=== PATIENT | male | born 1990 | race Caucasian/White ===

== ENCOUNTER 2023-06-10 11:55 | Emergency (ER) | payer MEDICARE, MEDICAID, SELFPAY ==
--- NOTE | ~2023-06-10 | XR_ITS ---
EXAMINATION: XR CHEST CLINICAL INFORMATION: Chest pain. COMPARISON: None available. TECHNIQUE: Frontal view of the chest was obtained. FINDINGS: The lungs are clear. The cardiomediastinal silhouette is normal in size. There is no pleural effusion or pneumothorax. No acute osseous abnormality. XR/XR chest 1V IMPRESSION: No acute cardiopulmonary findings.
--- NOTE | 2023-06-10 11:56 | ECG_ITS ---
Test Reason : chest pain Blood Pressure : / mmHG Vent. Rate : 068 BPM Atrial Rate : 068 BPM P-R Int : 144 ms QRS Dur : 086 ms QT Int : 394 ms P-R-T Axes : 041 045 062 degrees QTc Int : 418 ms Normal sinus rhythm Normal ECG No previous ECGs available Referred By: Odalys Watkins Electronically Signed By:BRYNN GR
--- NOTE | 2023-06-10 11:56 | ED_ITS ---
HPI - General Adult General Chief complaint: Chest Pain Stated complaint: chest pain, headache Time Seen by Provider: 06/10/23 13:13 Source: patient Mode of arrival: ambulatory Limitations: no limitations History of Present Illness HPI narrative: 32 yo male with history of epilepsy since age 13, marijuana use who presents to the ER for evaluation of intermittent right sided, non-radiating chest pains for the last 2 days. Patient states the chest pain comes at random times, feels like a rock is in his chest on the right side. It is sharp and goes away on its own. He also reports intermittent shortness of breath and nausea. He states over the last 3 or 4 days he has had 7 or 8 episodes of mini seizures. he states they are most consistent with partial seizures with a lot of facial twitching and speech difficulties that are transient followed by irritability and mood changes. He has been compliant with his Trileptal. he follows with Dr. Ribera and has an appointment on July 01. he states he has been getting 6 or 7 hours of sleep. He has had increased stress, recently got . He reports using [id number] mg of caffeine per day in the form of energy drinks and 5 hour energy shots. MD complaint: Right-sided chest pain, shortness of breath, nausea, many seizures Onset (ago): day(s) Location: chest and abdomen Radiation: non-radiation Severity: moderate Quality: stabbing Pain Consistency: intermittent Relieving factors: none Exacerbating factors: none Associated symptoms: chest pain and shortness of breath Treatments prior to arrival: none Related Data Allergies Allergy/AdvReac Type Severity Reaction Status Date / Time No Known Allergies Allergy Unverified 06/10/23 12:01 Review of Systems Review of Systems: Yes all other systems are reviewed and are negative [facility] Social History Social History Advance Directives: No Advance Directives Information Provided: Yes Physical Exam ED Vital Signs: Vital Signs - 24 hr 06/10/23 12:02 Temperature 98 F Pulse Rate 77 Respiratory Rate 20 Blood Pressure 125/89 Pulse Oximetry 98 Oxygen Delivery Method Room Air BMI result Body Mass Index 19.7 Appearance: Alert. Oriented X3. No acute distress. Head: normocephalic, atraumatic. Eyes: Pupils equal, round and reactive to light. ENT: Pharynx normal. No tonsillar swelling or exudate. Neck: Normal inspection. Neck supple. CVS: Normal heart rate and rhythm. Pulses normal. Respiratory: No respiratory distress. Breath sounds normal. Abdomen: Soft and nontender. +BS x4 Skin: Skin warm and dry. Normal skin color. Normal skin turgor. No rashes. Extremities: No lower extremity edema. No joint swelling. Neuro/psych: Oriented X 3. No motor deficit. No sensory deficit. CN II-XII intact. Normal speech and cognition. Course Course Course Narrative: This is an RME: Additional HPI, ROS, PE not included below will be deferred to primary provider. Patient is a 32 year old male with a history of epilepsy, cva, presenting with intermittent chest pain and abdominal pain starting two days ago. He explains for the past four days he has been having mini seizures. He also admits to shortness of breath and nausea. Patient on epilepsy medication and states he takes them as prescribed but does not think they work anymore. Not on blood thinners. Admits to cigarette, marijuana and 1000mg daily of caffeine. Medical Decision Making Medical Decision Making MDM Narrative: 32-year-old male with history of epileptic seizures since the age of 13 presents to the ER for evaluation of intermittent chest pains on the right side along with shortness of breath, nausea, increased frequency of many seizures at home for the last few days. Patient has been compliant with antiepileptics. No full-blown tonic-clonic seizures. He admits to significant caffeine use up to 1200 mg per day. This has been chronic. He has had cardiac workups in the past that were unremarkable. On arrival to the ER his vital signs are stable. His physical exam is unremarkable. Neurologically intact. EKG without any ischemic changes. Trop onin is negative. Labs are unremarkable. Chest x-ray is normal. At this time patient was counseled on appropriate weaning and tapering of caffeine, as this could be the etiology of his complaints. He has a neurology f/u appointment in a couple of weeks and will discuss further treatment options at that time. No need for emergent neuro referral today. No evidence of ACS or lifethreatening causes of his chest pain. Stable for d/c home with close outpatient follow up, all questions were answered and return precautions were discussed. Differential Diagnosis Differential Diagnoses: The differential diagnosis associated with the pr esentation includes adverse SE caffeine, caffeine toxicity, Substance abuse, anxiety, atypical chest pain, pericarditis, myocarditis, ACS, PE Admission/Observation Consideration of admission/observation: Escalation of care including admission/observation considered Lab Data MDM Lab Attestation statement: I reviewed the patient's lab results. unremarkable 06/10/23 12:10 06/10/23 12:10 Labs: Lab Results 06/10/23 06/10/23 06/10/23 Range/Units 12:10 12:10 12:10 WBC 9.6 (4.8-10.8) X10*3/uL RBC 4.76 (4.60-5.80) X10*6/uL Hgb 14.6 (14.0-18.0) g/dl Hct 42.3 (42.0-52.0) % MCV 88.9 (80.0-98.0) fL MCH 30.7 (27.0-33.0) pg MCHC 34.5 (31.0-36.0) g/dl RDW 12.6 (11.0-16.0) % Plt Count 232 (160-400) X10*3/uL MPV 8.8 L (9.4-12.4) fL Immature Gran % (Auto) 0.3 (0.0-0.4) % Neut % (Auto) 68.5 (45-73) % Lymph % (Auto) 22.9 (20-40) % [place] % (Auto) 6.9 (2-11) % Eos % (Auto) 1.0 (0-4) % Baso % (Auto) 0.4 (0-2) % Lymph # (Auto) 2.2 (1.2-4.9) X10*3/uL [place] # (Auto) 0.7 (0.1-1.2) X10*3/uL Eos # (Auto) 0.1 (0.0-0.4) X10*3/uL Baso # (Auto) 0.0 (0.0-0.2) X10*3/uL Abs Immat Gran (auto) 0.03 (0.00-0.03) X10*3/uL Absolute Neuts (auto) 6.6 (2.0-8.3) x10*3/uL Absolute Nucleated RBC 0.000 (0.0-0.012) X10*3/uL Nucleated RBC % (auto) 0.0 (0.0-0.2) /100WBC Sodium 137 (135-145) mmol/L Potassium 4.2 (3.3-5.1) mmol/L Chloride 106 (96-108) mmol/L Carbon Dioxide 25 (22-29) mmol/L Anion Gap 10 L (12-20) BUN 9 (9-16) mg/dL Creatinine 0.75 (0.5-1.4) mg/dL Estim Creat Clear Calc 132.0 Estimated GFR > 60 Random Glucose 91 (60-115) mg/dL Calcium 8.9 (8.4-10.2) mg/dL Magnesium 2.0 (1.6-2.6) mg/dL Total Bilirubin 0.3 (0.0-1.0) mg/dL AST 34 (5-37) U/L ALT 30 (0-40) U/L Alkaline Phosphatase 57 (39-117) U/L Troponin I High Sens (<3.5-35.0) ng/L B-Natriuretic Peptide 54 (<100) pg/mL Total Protein 7.1 (6.5-8.0) g/dL Albumin 4.5 (3.5-5.0) g/dL Urine Color Urine Appearance Urine pH (5.0-9.0) Ur Specific [place] (1.005-1.025) Urine Protein (Neg-Trace) mg/dL Urine Glucose (UA) (Negative) mg/dL Urine Ketones (Negative) mg/dL Urine Blood (Negative) Urine Nitrite (Negative) Ur Leukocyte Esterase (Negative) 06/10/23 06/10/23 Range/Units 12:10 13:18 WBC (4.8-10.8) X10*3/uL RBC (4.60-5.80) X10*6/uL Hgb (14.0-18.0) g/dl Hct (42.0-52.0) % MCV (80.0-98.0) fL MCH (27.0-33.0) pg MCHC (31.0-36.0) g/dl RDW (11.0-16.0) % Plt Count (160-400) X10*3/uL MPV (9.4-12.4) fL Immature Gran % (Auto) (0.0-0.4) % Neut % (Auto) (45-73) % Lymph % (Auto) (20-40) % [place] % (Auto) (2-11) % Eos % (Auto) (0-4) % Baso % (Auto) (0-2) % Lymph # (Auto) (1.2-4.9) X10*3/uL [place] # (Auto) (0.1-1.2) X10*3/uL Eos # (Auto) (0.0-0.4) X10*3/uL Baso # (Auto) (0.0-0.2) X10*3/uL Abs Immat Gran (auto) (0.00-0.03) X10*3/uL Absolute Neuts (auto) (2.0-8.3) x10*3/uL Absolute Nucleated RBC (0.0-0.012) X10*3/uL Nucleated RBC % (auto) (0.0-0.2) /100WBC Sodium (135-145) mmol/L Potassium (3.3-5.1) mmol/L Chloride (96-108) mmol/L Carbon Dioxide (22-29) mmol/L Anion Gap (12-20) BUN (9-16) mg/dL Creatinine (0.5-1.4) mg/dL Estim Creat Clear Calc Estimated GFR Random Glucose (60-115) mg/dL Calcium (8.4-10.2) mg/dL Magnesium (1.6-2.6) mg/dL Total Bilirubin (0.0-1.0) mg/dL AST (5-37) U/L ALT (0-40) U/L Alkaline Phosphatase (39-117) U/L Troponin I High Sens < 2.7 (<3.5-35.0) ng/L B-Natriuretic Peptide (<100) pg/mL Total Protein (6.5-8.0) g/dL Albumin (3.5-5.0) g/dL Urine Color Yellow Urine Appearance Clear Urine pH 7.0 (5.0-9.0) Ur Specific [place] 1.010 (1.005-1.025) Urine Protein Negative (Neg-Trace) mg/dL Urine Glucose (UA) Negative (Negative) mg/dL Urine Ketones Negative (Negative) mg/dL Urine Blood Negative (Negative) Urine Nitrite Negative (Negative) Ur Leukocyte Esterase Negative (Negative) Independent Interpretation I performed an independent interpretation of an: EKG and Plain X-Ray Interpretation: EKG with normal sinus rhythm, HR 68 bpm, normal AR interval and QTc CXR with clear lungs, no infiltrate, no PTX, agree w/ radiology read Radiology Impression Discussion of test interpretation with radiology: I have reviewed the radiologist's reading. Radiologist Impression: EXAMINATION: XR CHEST CLINICAL INFORMATION: Chest pain. COMPARISON: None available. TECHNIQUE: Frontal view of the chest was obtained. FINDINGS: The lungs are clear. The cardiomediastinal silhouette is normal in size. There is no pleural effusion or pneumothorax. No acute osseous abnormality. XR/XR chest 1V IMPRESSION: No acute cardiopulmonary findings. Prescription Management I considered prescription management with: Other (anxiolytic) Chronic Conditions Patient?s care impacted by: Other (epilepsy) Critical Care Time Critical Care Time Critical Care Time: No Discharge Plan Discharge Clinical Impression: Atypical chest pain, Adverse effect of caffeine Patient Disposition: Home, Self-Care Instructions: Noncardiac Chest Pain (ED), Caffeine Use (ED) Additional Instructions: Your workup today was unremarkable, including normal lab workup, normal chest x- ray, normal EKG. Recommend slowly titrating down your caffeine intake, over the course of days and weeks. Follow-up with your neurologist as scheduled. If you develop new or worsening symptoms call 911 or come back to the ER for further evaluation. Referrals: [facility] [place] [facility] Family Medicine [Provider Group] [facility] Primary [facility] [Provider Group] [facility] Primary Care[facility] [Provider Group] [facility] Neuro/Sleep [Provider Group] Stand Alone Forms: Work/School Release
[2023-06-10 12:02] VITALS: BP 125/89; PULSE 77; RESP 20; TEMP 36.6; O2SAT 98; BMI 19.7
[2023-06-10 12:22] LABS: MANUAL DIFF FLAG NO
[2023-06-10 12:30] LABS: Basophils Percent Auto 0.4 % (0-2); Eosinophils Absolute Auto 0.1 X10*3/uL (0.0-0.4); Hematocrit 42.3 % (42.0-52.0); Hemoglobin 14.6 g/dl (14.0-18.0); Imm Gran Abs Auto 0.03 X10*3/uL (0.00-0.03); Imm Gran Pct Auto 0.3 % (0.0-0.4); Lymphocytes Absolute Auto 2.2 X10*3/uL (1.2-4.9); Lymphocytes Percent Auto 22.9 % (20-40); Mean Corpuscular HGB Conc 34.5 g/dl (31.0-36.0); Mean Corpuscular Hemoglobin 30.7 pg (27.0-33.0); Mean Corpuscular Volume 88.9 fL (80.0-98.0); Mean Platelet Volume 8.8 fL (9.4-12.4); Monocytes Absolute Auto 0.7 X10*3/uL (0.1-1.2); Monocytes Percent Auto 6.9 % (2-11); Neutrophils Absolute Auto 6.6 x10*3/uL (2.0-8.3); Neutrophils Percent Auto 68.5 % (45-73); Platelet Count 232 X10*3/uL (160-400); Red Blood Count 4.76 X10*6/uL (4.60-5.80); Red Cell Distribution Width 12.6 % (11.0-16.0); White Blood Count 9.6 X10*3/uL (4.8-10.8)
[2023-06-10 12:50] LABS: Alanine Aminotransferase 30 U/L (0-40); Albumin Level 4.5 g/dL (3.5-5.0); Alkaline Phosphatase 57 U/L (39-117); Anion Gap 10 (12-20); Aspartate Amino Transferase 34 U/L (5-37); Bilirubin Total 0.3 mg/dL (0.0-1.0); Blood Urea Nitrogen 9 mg/dL (9-16); Calcium 8.9 mg/dL (8.4-10.2); Carbon Dioxide 25 mmol/L (22-29); Chloride 106 mmol/L (96-108); Estimated Glomerular Filt Rate > 60; Glucose Random 91 mg/dL (60-115); Potassium 4.2 mmol/L (3.3-5.1); Sodium 137 mmol/L (135-145); Total Protein 7.1 g/dL (6.5-8.0)
[2023-06-10 12:56] LABS: B Type Natriuretic Peptide 54 pg/mL (<100)
[2023-06-10 13:00] LABS: Troponin-I High Sensitivity < 2.7 ng/L (<3.5-35.0)
--- NOTE | 2023-06-10 13:22 | MHC.EDTECH ---
Urine collected and sent to lab
[2023-06-10 13:24] LABS: Appearance Urine Clear; Color Urine Yellow; Glucose Urine UA Negative (Negative); Leukocyte Esterase Urine Negative (Negative); Nitrite Urine Negative (Negative); Urine Blood Negative (Negative); Urine Ketones Negative (Negative); Urine Protein Negative (Neg-Trace)
== END 2023-06-10 14:00 | disposition home or self-care (01) ==
PROVIDERS: Physician Assistant; Emergency Provider Emergency Medicine
DX: R07.89 Other chest pain (principal); T43.615A Adverse effect of caffeine, initial encounter; R06.02 Shortness of breath; Y92.9 Unspecified place or not applicable; Z79.899 Other long term (current) drug therapy
CPT/HCPCS: 36415; 71045; 80053; 81003; 83735; 83880; 84484; 85025; 93005; 99283

== ENCOUNTER 2023-06-12 13:47 | Outpatient (REF) | payer MEDICARE, MEDICAID, SELFPAY ==
[2023-06-15 17:09] LABS: Oxcarbazepine 31.9 mcg/mL (8.0-35.0)
== END 2023-06-12 13:48 | disposition home or self-care (01) ==
LOC: HO.LAB 13:47
PROVIDERS: Visit Provider Psychiatry & Neurology Neurology
DX: G40.909 Epilepsy, unspecified, not intractable, without status epilepticus (principal); Z79.899 Other long term (current) drug therapy
CPT/HCPCS: 36415; 80339

== ENCOUNTER 2023-07-18 12:44 | Outpatient (REF) | payer MEDICARE, MEDICAID, SELFPAY ==
--- NOTE | 2023-07-18 12:47 | EEG_ITS ---
FINDINGS: Awaking background activity consists of a moderate voltage 8 to 9 hertz posterior alpha frequency intermixed anteriorly with low-voltage fast frequencies. Drowsiness is characterized by diffuse theta slowing. During sleep, symmetrical frontocentral sleep spindles developed over both hemispheres. Overall results are unremarkable. No focal, lateralizing or paroxysmal discharges are seen. IMPRESSION: This 24-hour ambulatory EEG is within normal limits with no seizure discharges. MD FABBY Leal/SABA / [phone]
== END 2023-07-18 12:45 | disposition home or self-care (01) ==
LOC: HO.NEURO 12:44
PROVIDERS: PCP Nurse Practitioner Family; Visit Provider Psychiatry & Neurology Neurology
DX: R56.9 Unspecified convulsions (principal)
CPT/HCPCS: 95708

== ENCOUNTER 2023-08-26 13:04 | Outpatient (AMB) | payer MEDICARE, MEDICAID, SELFPAY ==
[2023-08-26 13:06] VITALS: BP 130/72; PULSE 71; O2SAT 99; BMI 20.5
--- NOTE | 2023-08-26 13:06 | A.OFFPC_ITS ---
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. Past medical history significant for seizures, anxiety and stroke at age 2. Patient has residual left arm/leg partial paralysis with limited ROM and and walks with limp. Does not use any assistive devices at this time. Patient currently following with Dr. Mounika holland. Patient states was having 11 partial seizures a few months ago related to stress he was under. Denies recurrent seziures since starting on oxcarbazepine. Patient hx anxiety PHQ-9 score 0, does not currently follow with counseling or psychiatry, patient requesting psych referral. Referral entered. [facility] Medical History (Updated 08/27/23 @ 08:53 by RUBENS Rizvi) Paralysis of left upper extremity History of stroke Family History (Updated 08/26/23 @ 13:22 by RUBENS Rizvi) Mother Lymphoma Father Drug overdose Social History (Updated 08/26/23 @ 13:23 by RUBENS Rizvi) Housing: House Alcohol intake: never Patient Tobacco Use Status: Current everyday Tobacco user Cigarette Packs Per Day: 1 Substance Use Type: Marijuana Substance Use Frequency: Daily service: No Current occupational status: employed Current occupation: Cognitive needs: No Hearing needs: No Vision needs: No Questionnaire PHQ-9 Over the last 2 weeks, how often have you been bothered by any of the following problems? 1. Little interest or pleasure in doing things: not at all 2. Feeling down, depressed, or hopeless: not at all 3. Trouble falling or staying asleep, or sleeping too much: not at all 4. Feeling tired or having little energy: not at all 5. Poor appetite or overeating: not at all 6. Feeling bad about yourself - or that you are a failure or have let yourself or your family down: not at all 7. Trouble concentrating on things, such as reading the newspaper or watching television: not at all 8. Moving or speaking so slowly that other people could have noticed. Or the opposite - being so fidgety or restless that you have been moving around a lot more than usual: not at all 9. Thoughts that you would be better off or of hurting yourself in some way: not at all Total score: 0 Depression Screening Interpretation: Negative Depression Screening Done: Yes 31644 - PHQ-9 Billing: Yes Source: Developed by Drs. Shar Goldstein, Neelima Jansen, Vadim Cai and colleagues, with an educational patrick from [email or web address]. Thrive Questionnaire Date Thrive assessed: 08/26/23 I am a: Patient What is your living situation today?: I have a steady place to live Within the past 12 months, did the food you bought not last and you didn't have the money to get more?: Never true Within the past 12 months, did you worry whether your food would run out before you got money to buy more?: Never true Do you have trouble paying for medicines?: No Do you have trouble getting transportation to medical appointments?: No Do you have trouble paying your heating and electricity bill?: No Do you have trouble taking care of your child, family member or friend?: No Do you have trouble with day-to-day activities such as bathing, preparing meals, shopping, managing finances, etc.?: No Are you currently unemployed and looking for a job?: No Are you interested in more education?: No Currently or been in a relationship where the following occur: no concerns reported AUDIT C Alcohol Use Questionnaire (AUDIT-C) 1. How often do you have a drink containing alcohol?: Never 3. How often do you have six or more drinks on one occasion?: Never Total Score: 0 LEONARD-7 AMB Questionnaire LEONARD-7 Date LEONARD - 7 assessed: 08/26/23 Feeling nervous, anxious, or on edge: 0 = Not at all Not being able to stop or control worryin = Not at all Worrying too much about different things: 0 = Not at all Trouble relaxin = Not at all Being so restless that it is hard to sit still: 0 = Not at all Becoming easily annoyed or irritable: 0 = Not at all Feeling afraid as if something awful might happen: 0 = Not at all Total LEONARD-7 score (0-4 normal; 5-9 mild; 10-14 moderate; 15-21 severe): 0 Source: Developed by Drs. Shar Goldstein, Neelima Jansen, Vadim Cai and colleagues, with an educational patrick from [email or web address]. LEONARD-7 Assessment Billing LEONARD-7 Assessment Tool: LEONARD-7 Assessment 66660 Review of Systems Const Denies chills, Denies fatigue, Denies fever(s) and Denies poor appetite Eyes Denies no additional complaints ENT Reports Normal hearing present Card Denies chest pain, Denies syncope, Denies rapid heart rate and Denies dyspnea Resp Denies cough and Denies dyspnea GI Denies change in stool character, Denies constipation, Denies diarrhea, Denies nausea and Denies vomiting Denies dysuria, Denies urinary frequency and Denies urinary urgency Neuro Reports Normal hearing present, Denies confusion and Denies syncope Psych Denies confusion Endo Denies fatigue Physical exam (Primary Care) Vital Signs: Last Vital Signs Pulse 71 08/26/23 13:06 BP 130/72 08/26/23 13:06 Pulse Ox 99 08/26/23 13:06 Oxygen Delivery Method Room Air 08/26/23 13:06 BMI result Body Mass Index 20.5 Tobacco/Smoking Status: Tobacco use Status Tobacco use date assessed 08/26/23 08/26/23 13:07 Patient Tobacco Use Status Current everyday Tobacco 08/26/23 13:23 PHQ-9: PHQ-9 Score PHQ-9: Total score 0 08/26/23 13:24 Depression Screening Interpretation: Negative Thrive Assessment: Date of Thrive Assessment Date Thrive assessed 08/26/23 08/26/23 13:09 Currently or been in a relationship where the following occur: no concerns reported Const General: No confusion Orientation/consciousness: No confusion HENMT Head: Yes normocephalic and Yes atraumatic Eyes Conjunctivae: conjunctivae normal Chest Chest palpation & inspection: normal inspection of the chest Resp Effort & Inspection: normal respiratory effort Auscultation: clear to auscultation bilaterally, no crackles, no rhonchi and no wheezes Cardio Rate: regular rate Rhythm: regular rhythm Heart sounds: S1 normal heart sound present and S2 normal heart sound present GI Inspection: Yes normal to inspection Neuro General: No confusion Cranial nerves: Yes Normal hearing present Extrem General: No edema Assessment and Plan Assessment & Plan (1) Seizure: Code(s): R56.9 - Unspecified convulsions Plan: Continue on oxcarbazepine. Continue to follow with Neurology. (2) Anxiety: Code(s): F41.9 - Anxiety disorder, unspecified Plan: Referral entered psych. (3) Encounter for medical examination to establish care: Code(s): Z00.00 - Encounter for general adult medical examination without abnormal findings Orders: Orders TSH reflex Free T4 08/26/23 Z13.29 - Encounter for screening for other suspected endocrine disorder Lipid Panel 08/26/23 Z13.220 - Encounter for screening for lipoid disorders Comprehensive [place]. Panel Fast 08/26/23 Z13.1 - Encounter for screening for diabetes mellitus Complete Blood Count no Diff 08/26/23 Z13.0 - Encounter for screening for diseases of the blood and blood-forming organs and certain disorders involving the immune mechanism Referrals Psychiatry Referral F41.9 - Anxiety disorder, unspecified Coding Level of Care Code New Pt Level 3 (40167) Diagnoses Seizure R56.9 Anxiety F41.9 Encounter for medical examination to establish care Z00.00 Additional Codes LEONARD-7 Assessment Billing - LEONARD-7 Assessment Tool: LEONARD-7 Assessment 34095 ([id number])
== END 2023-08-26 13:29 | disposition home or self-care (01) ==
PROVIDERS: PCP Nurse Practitioner Family; Visit Provider Nurse Practitioner Family
DX: R56.9 Unspecified convulsions (principal); F41.9 Anxiety disorder, unspecified
CPT/HCPCS: 99203

== ENCOUNTER 2023-12-02 07:51 | Outpatient (AMB) | payer MEDICARE, MEDICAID, SELFPAY ==
--- NOTE | 2023-12-02 08:03 | MHC.PC.OV ---
Vital Signs 12/02/23 08:05 Height 6 ft Weight 147 lb BMI 19.9 BP 132/70 Blood Pressure Location Lt brachial Position Sitting Pulse 68 Pulse Source Pulse Oximeter Pulse Oximetry (%) 97 Oxygen Delivery Method Room Air Intake Visit Reasons: Annual Exam Intake Note: Patient is here for his physical. 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 Here today for physical exam Prostatis Dx w/ 11/13/23 UC in [place]. Was on AB x 1 week. Admits sx are better but done. Denies fever, chills. + abd pain. Urine looks abnormal, particles . No hematuria. Positive penile discharge Partial Sz affects speech; occurs a few times per day. Active with [facility] for routine care and follow-up LEONARD relates the uptick to his health at the time of the visit, this is better. Here today w/ Alfreda BRITO Medical History Paralysis of left upper extremity History of stroke Family History Mother Lymphoma Father Drug overdose Social History (Updated 12/02/23 @ 09:51 by Kirsten Ramsey CMA) Household Members: Other Caregiver staying overnight: No Housing: House Are you a primary zoo caretaker to a significant other at home: No Do you presently have visiting nurse or other home services: No 75 years or older and lives alone: No Alcohol intake: never Patient Tobacco Use Status: Current everyday Tobacco user Cigarette Packs Per Day: 1 e-Cigarette/Vaping Use: Currently Using Use of substances other than those prescribed or required for medical reasons: Yes Substance Use Type: Marijuana Have you been hit, kicked, punched, or otherwise hurt by someone within the past year? If so, by whom?: No Do you feel safe in your current relationship?: Yes Is there a partner from a previous relationship who is making you feel unsafe now?: No Are you made to feel afraid or neglected: No service: No Current occupational status: employed Current occupation: Sexual orientation: Unable to collect Gender identity: Unable to collect Cognitive needs: No Hearing needs: No Vision needs: No Questionnaire PHQ-9 Over the last 2 weeks, how often have you been bothered by any of the following problems? 1. Little interest or pleasure in doing things: not at all 2. Feeling down, depressed, or hopeless: not at all 3. Trouble falling or staying asleep, or sleeping too much: not at all 4. Feeling tired or having little energy: not at all 5. Poor appetite or overeating: not at all 6. Feeling bad about yourself - or that you are a failure or have let yourself or your family down: not at all 7. Trouble concentrating on things, such as reading the newspaper or watching television: not at all 8. Moving or speaking so slowly that other people could have noticed. Or the opposite - being so fidgety or restless that you have been moving around a lot more than usual: not at all 9. Thoughts that you would be better off or of hurting yourself in some way: not at all Total score: 0 Depression Screening Interpretation: Negative Depression Screening Done: Yes 86444 - PHQ-9 Billing: Yes Source: Developed by Drs. Shar Goldstein, Neelima Jansen, Vadim Cai and colleagues, with an educational patrick from [email or web address]. Thrive Questionnaire Date Thrive assessed: 12/02/23 I am a: Patient What is your living situation today?: I have a steady place to live Within the past 12 months, did the food you bought not last and you didn't have the money to get more?: Never true Within the past 12 months, did you worry whether your food would run out before you got money to buy more?: Never true Do you have trouble paying for medicines?: No Do you have trouble getting transportation to medical appointments?: No Do you have trouble paying your heating and electricity bill?: No Do you have trouble taking care of your child, family member or friend?: No Do you have trouble with day-to-day activities such as bathing, preparing meals, shopping, managing finances, etc.?: No Are you currently unemployed and looking for a job?: No Are you interested in more education?: No Please select the resources that you would like help with: None Currently or been in a relationship where the following occur: no concerns reported THRIVE Score: 0 AUDIT C Alcohol Use Questionnaire (AUDIT-C) 1. How often do you have a drink containing alcohol?: Never 3. How often do you have six or more drinks on one occasion?: Never Total Score: 0 Score Reviewed/Action Taken: Yes LEONARD-7 AMB Questionnaire LEONARD-7 Date LEONARD - 7 assessed: 12/02/23 Feeling nervous, anxious, or on edge: 0 = Not at all Not being able to stop or control worryin = Not at all Worrying too much about different things: 0 = Not at all Trouble relaxin = Not at all Being so restless that it is hard to sit still: 0 = Not at all Becoming easily annoyed or irritable: 0 = Not at all Feeling afraid as if something awful might happen: 0 = Not at all Total LEONARD-7 score (0-4 normal; 5-9 mild; 10-14 moderate; 15-21 severe): 0 Source: Developed by Drs. Shar Goldstein, Neelima Jansen, Vadim Cai and colleagues, with an educational patrick from [email or web address]. LEONARD-7 Assessment Billing LEONARD-7 Assessment Tool: LEONARD-7 Assessment 42435 Review of Systems Const Details: Constitutional: Denies fever. Skin: Denies rash. Eye: Denies eye pain. ENMT: Denies sore throat and nasal congestion. Respiratory: Denies shortness of breath and cough. Gastrointestinal: Denies nausea, vomiting. Cardiovascular: Denies chest pain and syncope. Genitourinary: Denies dysuria. Musculoskeletal: Denies back pain and extremity pain. Neurologic: Denies headaches, confusion, and weakness. Psychiatric: Denies suicidal thoughts and substance abuse. Allergy/ Immunologic: Denies impaired immunity. Physical exam (Primary Care) Vital Signs: Last Vital Signs Pulse 68 12/02/23 08:05 BP 132/70 12/02/23 08:05 Pulse Ox 97 12/02/23 08:05 Oxygen Delivery Method Room Air 12/02/23 08:05 BMI result Body Mass Index 19.9 Tobacco/Smoking Status: Tobacco use Status Tobacco use date assessed 08/26/23 12/02/23 08:03 Patient Tobacco Use Status Current everyday Tobacco 12/02/23 08:03 e-Cigarette/Vaping Use Currently Using 12/02/23 08:23 Are you ready to quit: No Tobacco cessation counseling provided: Yes Items discussed: QuitWorks Number of minutes spent counselin CPT code: Less than 3 minutes PHQ-9: PHQ-9 Score PHQ-9: Total score 0 12/02/23 08:23 Depression Screening Interpretation: Negative Thrive Assessment: Date of Thrive Assessment Date Thrive assessed 12/02/23 12/02/23 08:23 Currently or been in a relationship where the following occur: no concerns reported Const Other: General: Well developed, well nourished, in no acute distress. Appears older than stated age. Head: Normocephalic, atraumatic. Eyes: Pupils are equal, round and reactive to light and accommodation. Conjunctivae are clear. Vision grossly normal. Ears: TMs clear AU, EACS WNL Nose: Patent, without discharge. Mouth: There are no ulcers or lesions noted. No inflammation, no post nasal drip, no plaques nor exudates. Neck: Supple, no adenopathy or thyromegaly. Lungs: Clear to auscultation bilaterally. No rales, rhonchi or wheeze noted. Good air flow in all marie. Heart: Regular rate and rhythm. No murmurs, click, rubs or gallops are noted. Abdomen: Bowel sounds present in all quadrants. The abdomen is soft, nontender, with no masses or organomegaly noted. No hernias are noted. Musculoskeletal: Joints are nontender, without swelling, redness, or effusions. Pulses: Peripheral pulses are equal and palpable bilaterally. Extremities: No clubbing, cyanosis nor edema is noted. Hemiparesis affecting left upper and lower extremity, muscle atrophy of left arm, ambulates with a limp favoring the left lower extremity Neurologic: Cranial Nerves 2-12 intact. Skin: No rashes, ulcers, or lesions noted. Turgor is good. Skin color is good. Hair and nails are without abnormalities. Psych: Anxious appearing, guarded, looks at before answering any questions and defers to her for any details. Normal eye contact, affect and mood appropriate, and normal interactions. Patient is alert and appropriate to context. Extremities: No clubbing, cyanosis or edema. 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 Managed carbamazepine reports several partial seizures daily Code(s): I69.398 - Other sequelae of cerebral infarction; G40.909 - Epilepsy, unspecified, not intractable, without status epilepticus (3) Hemiparesis affecting left side as late effect of cerebrovascular accident: Comment: CVA at age of 2 with residual hemiparesis affecting the left upper and lower extremity Code(s): I69.354 - Hemiplegia and hemiparesis following cerebral infarction affecting left non-dominant side (4) LEONARD (generalized anxiety disorder): Comment: Current and active. Not on any medications. Declines medication as well as any referral for counseling or management Code(s): F41.1 - Generalized anxiety disorder (5) Prostatitis: Code(s): N41.9 - Inflammatory disease of prostate, unspecified Qualifiers: Prostatitis type: acute Qualified Code(s): N41.0 - Acute prostatitis Plan: Reports this was diagnosed at urgent care on 11/13/2023 and treated with 1 week of antibiotics. His symptoms have improved however continue. I do not have any records. He and his can not give me any further details of this visit. The plan will be to check a urine today along with a PSA and an STD screen. I would like to follow up with him on the results of this testing in 2 weeks sooner if positive results for STD. If the testing is normal and he continues to have these symptoms I do recommend a referral to Urology. (6) Laboratory exam ordered as part of routine general medical examination: Code(s): Z00.00 - Encounter for general adult medical examination without abnormal findings (7) Tobacco dependence with current use: Comment: It?s never too late to quit smoking. Quitting smoking now improves your health and reduces your risk of heart disease, cancer, lung disease, and other smoking-related illnesses. Start Your Quitting Journey Resources for Quitting Telephone 7-922-OYQW-NOW ( ) 68-D?OLIVIAKeelySIOMARA ( ) (Espa?ol) (??) (???) (Ti?ng Vi?t) Text Messaging Services (Message and data rates may apply) Text QUITNOW to [phone] Texto D?OLIVIA STRINGER al [id number] (Espa?ol) Smartphone Tito quitSTARTapp Code(s): F17.200 - Nicotine dependence, unspecified, uncomplicated Orders: Orders Vitamin D 1,25 dihydroxy Today F41.1 - Generalized anxiety disorder, G40.909 - Epilepsy, unspecified, not intractable, without status epilepticus, I69.354 - Hemiplegia and hemiparesis following cerebral infarction affecting left non-dominant side, I69.398 - Other sequelae of cerebral infarction, N41.9 - Inflammatory disease of prostate, unspecified Lipid Panel Today F41.1 - Generalized anxiety disorder, G40.909 - Epilepsy, unspecified, not intractable, without status epilepticus, I69.354 - Hemiplegia and hemiparesis following cerebral infarction affecting left non-dominant side, I69.398 - Other sequelae of cerebral infarction, N41.9 - Inflammatory disease of prostate, unspecified PSA, Ultra Sensitive Today F41.1 - Generalized anxiety disorder, G40.909 - Epilepsy, unspecified, not intractable, without status epilepticus, I69.354 - Hemiplegia and hemiparesis following cerebral infarction affecting left non-dominant side, I69.398 - Other sequelae of cerebral infarction, N41.9 - Inflammatory disease of prostate, unspecified PSA,Total (Free>4and<10) Today F41.1 - Generalized anxiety disorder, G40.909 - Epilepsy, unspecified, not intractable, without status epilepticus, I69.354 - Hemiplegia and hemiparesis following cerebral infarction affecting left non-dominant side, I69.398 - Other sequelae of cerebral infarction, N41.9 - Inflammatory disease of prostate, unspecified HIV Ab/Ag Today F41.1 - Generalized anxiety disorder, G40.909 - Epilepsy, unspecified, not intractable, without status epilepticus, I69.354 - Hemiplegia and hemiparesis following cerebral infarction affecting left non-dominant side, I69.398 - Other sequelae of cerebral infarction, N41.9 - Inflammatory disease of prostate, unspecified CT NG by PCR Today F41.1 - Generalized anxiety disorder, G40.909 - Epilepsy, unspecified, not intractable, without status epilepticus, I69.354 - Hemiplegia and hemiparesis following cerebral infarction affecting left non-dominant side, I69.398 - Other sequelae of cerebral infarction, N41.9 - Inflammatory disease of prostate, unspecified Syphilis Screen Today F41.1 - Generalized anxiety disorder, G40.909 - Epilepsy, unspecified, not intractable, without status epilepticus, I69.354 - Hemiplegia and hemiparesis following cerebral infarction affecting left non-dominant side, I69.398 - Other sequelae of cerebral infarction, N41.9 - Inflammatory disease of prostate, unspecified Comprehensive [place]. Panel Fast Today F41.1 - Generalized anxiety disorder, G40.909 - Epilepsy, unspecified, not intractable, without status epilepticus, I69.354 - Hemiplegia and hemiparesis following cerebral infarction affecting left non-dominant side, I69.398 - Other sequelae of cerebral infarction, N41.9 - Inflammatory disease of prostate, unspecified Microalbumin, Random (w Creat) Today F41.1 - Generalized anxiety disorder, G40.909 - Epilepsy, unspecified, not intractable, without status epilepticus, I69.354 - Hemiplegia and hemiparesis following cerebral infarction affecting left non-dominant side, I69.398 - Other sequelae of cerebral infarction, N41.9 - Inflammatory disease of prostate, unspecified TSH reflex Free T4 Today F41.1 - Generalized anxiety disorder, G40.909 - Epilepsy, unspecified, not intractable, without status epilepticus, I69.354 - Hemiplegia and hemiparesis following cerebral infarction affecting left non-dominant side, I69.398 - Other sequelae of cerebral infarction, N41.9 - Inflammatory disease of prostate, unspecified UA CC w/rflx Micro + Cult Today F41.1 - Generalized anxiety disorder, G40.909 - Epilepsy, unspecified, not intractable, without status epilepticus, I69.354 - Hemiplegia and hemiparesis following cerebral infarction affecting left non-dominant side, I69.398 - Other sequelae of cerebral infarction, N41.9 - Inflammatory disease of prostate, unspecified Coding Level of Care Code Est Pt Prev Care 18-39y(30639) Diagnoses Physical exam, annual Z00.00 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
[2023-12-02 08:05] VITALS: BP 132/70; PULSE 68; O2SAT 97; BMI 19.9
== END 2023-12-02 08:51 | disposition home or self-care (01) ==
PROVIDERS: PCP Nurse Practitioner Family; Visit Provider Nurse Practitioner Family
DX: Z00.00 Encounter for general adult medical examination without abnormal findings (principal); G40.909 Epilepsy, unspecified, not intractable, without status epilepticus; I69.354 Hemiplegia and hemiparesis following cerebral infarction affecting left non-dominant side; I69.398 Other sequelae of cerebral infarction; F41.1 Generalized anxiety disorder; N41.0 Acute prostatitis; F17.210 Nicotine dependence, cigarettes, uncomplicated
CPT/HCPCS: 99395

== ENCOUNTER 2023-12-02 08:33 | Outpatient (REF) | payer MEDICARE, MEDICAID, SELFPAY ==
[2023-12-02 11:07] LABS: Appearance Urine Clear; Color Urine Yellow; Glucose Urine UA Negative (Negative); Leukocyte Esterase Urine Negative (Negative); Nitrite Urine Negative (Negative); PH 6.5 (5.0-9.0); Specific Gravity - Urine 1.025 (1.005-1.025); Urine Blood Negative (Negative); Urine Ketones Negative (Negative); Urine Protein Negative (Neg-Trace)
[2023-12-02 11:52] LABS: Microalbum/Creatinine Ratio Ur 11.2 ug/mg cr (<30)
[2023-12-02 11:55] LABS: Alanine Aminotransferase 28 U/L (0-40); Albumin Level 4.5 g/dL (3.5-5.0); Alkaline Phosphatase 59 U/L (39-117); Anion Gap 11 (12-20); Aspartate Amino Transferase 30 U/L (5-37); Bilirubin Total 0.2 mg/dL (0.0-1.0); Blood Urea Nitrogen 14 mg/dL (9-16); Carbon Dioxide 25 mmol/L (22-29); Chloride 106 mmol/L (96-108); Cholesterol 189 mg/dL (<200); Estimated Glomerular Filt Rate > 60; Glucose Fasting 94 mg/dL (60-99); HDL Cholesterol 45 mg/dL (>40); LDL Cholesterol Calculated 133 mg/dL (<100); Sodium 138 mmol/L (135-145); Triglycerides 58 mg/dL (<150)
[2023-12-03 03:01] LABS: Syphilis Screen Nonreactive (Nonreactive)
[2023-12-03 03:17] LABS: HIV AB/AG Nonreactive (Nonreactive); HIV Num 1 0.06 S/CO (0.00-0.99)
[2023-12-05 12:34] LABS: VITAMIN D (1,25 OH) D3 39 pg/mL; Vit D (1,25-Dihydroxy) Total 39 pg/mL (18-72); Vitamin D (1,25 OH) D2 <8 pg/mL
[2023-12-05 17:39] LABS: PSA, Ultra Sensitive 0.83 ng/mL
== END 2023-12-02 08:34 | disposition home or self-care (01) ==
LOC: HO.WFDLDS 08:33
PROVIDERS: Visit Provider Nurse Practitioner Family
DX: I69.354 Hemiplegia and hemiparesis following cerebral infarction affecting left non-dominant side (principal); I69.398 Other sequelae of cerebral infarction; G40.909 Epilepsy, unspecified, not intractable, without status epilepticus; N41.9 Inflammatory disease of prostate, unspecified; F41.1 Generalized anxiety disorder; Z12.5 Encounter for screening for malignant neoplasm of prostate
CPT/HCPCS: 36415; 80053; 80061; 81003; 82043; 82570; 82652; 84153; 84443; 86780; 87389

== ENCOUNTER 2023-12-17 15:55 | Outpatient (AMB) | payer MEDICARE, MEDICAID, SELFPAY ==
--- NOTE | 2023-12-17 15:53 | A.OFFPC_ITS ---
Intake Visit Reasons: lab review/prostatis Intake Note: Patient is ready for his telehealth visit. Screening Nurse Required: No Accompanied by: Self / Same As Patient Allergies No Known Allergies Allergy (Verified 12/17/23 15:54) Tobacco use date assessed: 08/26/23 HPI HPI Comments History of Present Illness0 Details Given the COVID-19 pandemic, the patient was offered and has consented to a telemedicine visit with Gissell Bryan NP 12/17/23 at 1600 in lieu of a tra ditional in-office visit. Patient understands the risks, alternatives and benefits of a telemedicine visit. The patient has been informed of the limitations of a telemedicine visit, including the quality of self-reported information (e.g. vital signs and symptoms) as well as the inability to perform a hands-on physical exam by a healthcare provider. Patient understands that a traditional in-office visit may be required based on the findings of today's telemedicine visit. Patient also understands that their insurance will be billed for services rendered and that a copayment may be required. 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 No longer having any urinary symptoms. Reports that he has been drinking more fluid and feels like this has helped. I did place a referral to Urology. I asked him if he would like me to cancel this given that he is feeling better. He wishes to defer and speak with his before doing anything. He will call or send a portal message about this after he talks with his . I also followed up about his anxiety. Reports that he generally feels wound up and that life circumstances in his health do cause some anxiety however he feels like he is managing okay and does not wish for any medications or counseling referral at this time. He does state that he will reach out if anything changes. [facility] Medical History Paralysis of left upper extremity History of stroke Family History Mother Lymphoma Father Drug overdose Social History (Updated 12/02/23 @ 09:51 by Kirsten Ramsey CMA) Household Members: Other Caregiver staying overnight: No Housing: House Are you a primary home visit field care manager to a significant other at home: No Do you presently have visiting nurse or other home services: No 75 years or older and lives alone: No Alcohol intake: never Patient Tobacco Use Status: Current everyday Tobacco user Cigarette Packs Per Day: 1 e-Cigarette/Vaping Use: Currently Using Use of substances other than those prescribed or required for medical reasons: Yes Substance Use Type: Marijuana Have you been hit, kicked, punched, or otherwise hurt by someone within the past year? If so, by whom?: No Do you feel safe in your current relationship?: Yes Is there a partner from a previous relationship who is making you feel unsafe now?: No Are you made to feel afraid or neglected: No service: No Current occupational status: employed Current occupation: Sexual orientation: Unable to collect Gender identity: Unable to collect Cognitive needs: No Hearing needs: No Vision needs: No Questionnaire Thrive Questionnaire Date Thrive assessed: 12/02/23 LEONARD-7 AMB Questionnaire LEONARD-7 Date LEONARD - 7 assessed: 12/02/23 Source: Developed by Drs. Shar Goldstein, Neelima Jansen, Vadim Cai and colleagues, with an educational patrick from [employer]. Physical exam (Primary Care) Tobacco/Smoking Status: Tobacco use Status Tobacco use date assessed 08/26/23 12/17/23 15:54 Patient Tobacco Use Status Current everyday Tobacco 12/17/23 15:54 e-Cigarette/Vaping Use Currently Using 12/17/23 15:54 Thrive Assessment: Date of Thrive Assessment Date Thrive assessed 12/02/23 12/17/23 15:54 Telehealth Telehealth Location of provider rendering services: practice address Location of patient: address on file Patient Identification confirmed using: Name, : Yes Telehealth method: voice only Patient verbally consented to treatment: Yes Patient verbally consented to billing insurance company: Yes Patient informed of any privacy concerns related to visit: Yes Minutes spent on Phone/Video with Pt.: 5 Assessment and Plan Assessment & Plan (1) LEONARD (generalized anxiety disorder): Comment: Current and active. Not on any medications. Declines medication as well as any referral for counseling or management. He states he will reach out to me if he feels medication or counseling would be beneficial to him Code(s): F41.1 - Generalized anxiety disorder (2) Prostatitis syndrome: Code(s): N42.82 - Prostatosis syndrome Plan: Urine and lab results within normal limits. All of his symptoms have completely resolved. Referral to Urology is currently in place. He is going to discuss with his to see if he should keep this referral or not and then he will notify the office. Plan I have asked for him to schedule an office visit in 1 year for wellness exam. I have sent this message to the office staff to arrange for this appointment to be scheduled Coding Level of Care Code Tele Est Pt Level 1 (43723) Diagnoses LEONARD (generalized anxiety disorder) F41.1 Prostatitis syndrome N42.82
== END 2023-12-17 16:35 | disposition home or self-care (01) ==
PROVIDERS: PCP Nurse Practitioner Family; Visit Provider Nurse Practitioner Family
DX: F41.1 Generalized anxiety disorder (principal); N42.82 Prostatosis syndrome
CPT/HCPCS: 99441

== ENCOUNTER 2024-05-05 14:16 | Emergency (ER) | payer OTHER, MEDICARE, MEDICAID, SELFPAY ==
[2024-05-05 14:19] VITALS: BP 131/82; PULSE 88; RESP 22; TEMP 36.8; O2SAT 97; BMI 19.4
--- NOTE | 2024-05-05 14:19 | ED.UPPEXIN ---
HPI - Extremity Injury (Upper) General Chief Complaint: Burn/Smoke Inhalation Stated Complaint: Work injury - R arm in fryer Time Seen by Provider: 05/05/24 15:08 Source: patient Mode of arrival: ambulatory Limitations: no limitations History of Present Illness ED Provider: DENNY LOW PA-C HPI narrative: 33-year-old male with past medical history significant for anxiety, CVA with left-sided hemiparesis presents to the ED today for evaluation of right upper extremity burn s/p slipping arm into will prior at work prior to arrival. States that he was fixing something above the fryer when his arm slipped and fell into the deep fryer just below him. Admits immediately removing his arm from the prior and putting it in the pocket of cold water for approximately 20 minutes. Admits to pain extending from his right hand up into his right forearm. Denies difficulty moving fingers or wrist. Tetanus is not UTD. Related Data Home Medications ?Medication ?Instructions ?Recorded ?Confirmed oxcarbazepine 600 mg tablet mg PO BID 08/26/23 12/02/23 Previous Rx's ?Medication ?Instructions ?Recorded bacitracin 500 unit/gram topical 1 appl topical DAILY #30 grams 05/05/24 ointment Allergies Allergy/AdvReac Type Severity Reaction Status Date / Time No Known Allergies Allergy Verified 05/05/24 14:21 Review of Systems Review of Systems: Constitutional: No fever, chills, fatigue, night sweats, weight changes ENT/Mouth: No ear pain, hearing loss, nasal congestion, sinus pain, rhinorrhea, sore throat Eyes: No eye pain, swelling, redness, vision changes, discharge Cardio: No chest pain, palpitations, STALLWORTH, orthopnea, peripheral edema Pulm: No SOB, cough, sputum, wheezing, dyspnea, hemoptysis GI: No nausea, vomiting, hematemesis, abdominal pain, diarrhea, constipation, hematochezia, melena : No irregular bleeding, dysuria, frequency, urgency, hesitancy, hematuria, flank pain, urinary flow changes, urinary incontinence or retention MSK: No back pain, neck pain, joint pain, myalgias Skin: No lesions, rashes, +burn to RUE Neuro: No weakness, numbness, paresthesias, LOC, dizziness, headache Psych: No anxiety/panic, depression, SI/HI, AH/VH All other systems reviewed and are negative. [facility] Past Medical History Attestation statement: The following information was validated with the patient. Source: old records reviewed and nursing notes reviewed Medical History Paralysis of left upper extremity History of stroke Family History Family History Mother Lymphoma Father Drug overdose Social History Social History Household Members: Other Housing: House Are you a primary medicare sales executive to a significant other at home: No Do you presently have visiting nurse or other home services: No Alcohol intake: never Patient Tobacco Use Status: Current everyday Tobacco user Cigarette Packs Per Day: 1 e-Cigarette/Vaping Use: Currently Using Substance Use Type: Marijuana Advance Directives: No Advance Directives Information Provided: No service: No Current occupational status: employed Current occupation: Sexual orientation: Unable to collect Gender identity: Unable to collect Cognitive needs: No Hearing needs: No Vision needs: No Physical Exam Vital Signs: Vital Signs: Last Vital Signs Temp 98.3 F 05/05/24 17:13 Pulse 88 05/05/24 17:13 Resp 22 H 05/05/24 17:13 BP 131/82 05/05/24 17:13 Pulse Ox 97 05/05/24 17:13 O2 Del Method Room Air 05/05/24 17:13 BMI result Body Mass Index 19.4 Patient tachypneic, vitals otherwise WNL. Const: General: cooperative, healthy appearing, comfortable and no acute distress Orientation/consciousness: patient oriented x3 Limitations: no limitations HEENT: Head: Yes normal to inspection, Yes No palpable skull fracture present, Yes normocephalic and Yes atraumatic Eyes: General: appearance normal, both eyes and all related structures Conjunctivae: conjunctivae normal Sclerae: sclerae normal Pupils: Equal, round and reactive pupils present Resp: Effort & Inspection: normal respiratory effort and able to speak in complete sentences Auscultation: clear to auscultation bilaterally Cardio: Rate: regular rate Rhythm: regular rhythm Skin: Other: + refer to photos below Neuro: Other: Strength 5/5 intact throughout.?Sensation intact to light touch.? Neurovascular intact distally.? General: patient oriented x3 Cranial nerves: Yes Equal, round and reactive pupils present Extrem: Other: + refer to photos below + RUE with circumferential first-degree burn noted to entire hand and 3/4 up forearm. There are small areas of 2nd degree burn with blistering noted to the dorsal and lateral aspects of the right wrist, not circumfrential. FROM intact to right elbow, wrist, and all digits on right hand. diffusely ttp. graphic artist strength intact. Course Course Course Narrative: This is a Rapid Medical Exam performed in triage by Lisa Martinez PA-C. Full HPI, ROS and PE to be performed by primary ED provider. 33 year-old M w/ PMHx LEONARD, CVA w/ left sided hemiparesis presenting to the ED c/o RUE burn s/p slipping arm into oil fryer at work [employer]. Admits put hand/arm in bucket of water/ice afterwards PE: RUE +erythema & small blistering Plan: irrigation & dressing Reevaluation(s) Reevaluation #1: 3140-- I spoke with Dr. Aldana at [facility]. after reviewing case and photos, she recommends washing the area daily with mild soap and water, applying triple antibiotic ointment on with a nonadherent but occlusive dressing with follow-up in the clinic next week Advised patient not to work for 1-2 weeks. no labs/ imaging warranted at this time. > in ED, burn rinsed well with saline. blisters intact. bacitracin applied with nonadherent & occlusive dressing. patient tolerated well. pain well controlled with motrin and morphine > Patient has remained stable throughout ED visit today. Discussed worrisome signs and symptoms and when to return to the ED. All questions answered at this time. Patient is agreeable with disposition and stable for discharge. Medications Administered Discontinued Medications Generic Name Dose Route Start Last Admin Trade Name Freq PRN Reason Stop Dose Admin Bacitracin 1 appl 05/05/24 16:18 05/05/24 16:38 Bacitracin Oint 0.9 Gm Packet TOPICAL 05/05/24 16:19 1 appl ONCE ONE Administration Protocol Diphtheria/Tetanus/Acell Pertussis 0.5 ml 05/05/24 15:31 05/05/24 15:37 Diphth,Pertus(Acell),Tet Adult 0.5 Ml Syringe IM 05/05/24 15:32 0.5 ml .ONCE ONE Administration Ibuprofen 800 mg 05/05/24 14:28 05/05/24 14:32 Ibuprofen 800 Mg Tablet PO 05/05/24 14:29 800 mg ONCE ONE Administration Morphine Sulfate 15 mg 05/05/24 14:27 05/05/24 14:32 Morphine Sulfate Immed Release 15 Mg Tablet PO 05/05/24 14:28 15 mg ONCE ONE Administration Medical Decision Making Medical Decision Making MDM Narrative: 33-year-old male with past medical history significant for anxiety, CVA with left-sided hemiparesis presents to the ED today for evaluation of right upper extremity burn s/p slipping arm into will prior at work prior to arrival. Vital signs stable, tachypneic as patient was hyperventilating on arrival. He is nontoxic appearing in no acute distress. On exam, RUE with circumferential first-degree burn noted to entire hand and 3/4 up forearm. There are small areas of 2nd degree burn with blistering noted to the dorsal and lateral aspects of the right wrist, not circumfrential. no noted swelling. FROM intact to right elbow, wrist, and all digits on right hand. diffusely ttp. graphic artist strength intact. Differential diagnosis includes first degree burn, second degree burn, chemical burn. low suspicion for infection, compartment syndrome, NV compromise, threat to limb. Plan for burn care, pain control, burn consultation, and re-evaluation. Differential Diagnosis Differential Diagnoses: The differential diagnosis associated with the presentation includes as above Admission/Observation Consideration of admission/observation: Escalation of care including admission/observation considered Admission considered on presentation. Consult Healthcare Provider Management of the patient was discussed with: Electrical Instrument Technician [facility] -- Dr. Aldana Discharge Plan Discharge Clinical Impression: Chemical burn of right hand, Chemical burn of right forearm Patient Disposition: Home, Self-Care Instructions: Chemical Skin Burn (ED) Additional Instructions: You were evaluated in the ED today for chemical burn to your right hand/forearm. Your case was discussed with the Burn [facility] at [facility]. Their recommendation is washing the area with a mild soap daily. Apply a triple antibiotic ointment to the area (bacitracin or Neosporin) which has been sent to your pharmacy. Dress the area with a nonadherent but occlusive dressing. Take tylenol and motrin at home for pain control. Please do not return to work for 1-2 weeks. You have an appointment with [facility] on Saturday05/11/24 at [address] , [place] [address] You can reach them at: 1. [phone] 2. [phone] If you cannot get through with the 1st number, you may use the 2nd phone number. Return with new or worsening symptoms. In the case of an emergency call 911. Additionally, please follow up with work connection as this was a work-related injury. [facility]: [phone] Prescriptions: New bacitracin 500 unit/gram ointment 1 appl topical DAILY Qty: 30 0RF No Action oxcarbazepine 600 mg tablet PO BID Referrals: [facility] [Provider Group] [facility] [Outside] Stand Alone Forms: Work/School Release Interventions: ED Discharge Assessment Last Done: 05/05/24 17:13 Discharge Date/Time: 05/05/24 17:13 Print Language: [place]
[2024-05-05] MEDS: Morphine Sulfate Immed Release 15 MG TABLET PO (14:32)
[2024-05-05] MEDS: Ibuprofen 800 MG TABLET PO (14:32)
[2024-05-05] MEDS: Diphth,Pertus(ACell),Tet Adult 0.5 ML SYRINGE IM (15:37)
[2024-05-05] MEDS: Bacitracin Oint 0.9 GM PACKET 1 APPL TOPICAL (16:38)
[2024-05-05 17:13] VITALS: BP 131/82; PULSE 88; RESP 22; TEMP 36.8; O2SAT 97
== END 2024-05-05 17:13 | disposition home or self-care (01) ==
PROVIDERS: Emergency Provider Emergency Medicine Emergency Medical Services
DX: T23.291A Burn of second degree of multiple sites of right wrist and hand, initial encounter (principal); T22.111A Burn of first degree of right forearm, initial encounter; X10.2XXA Contact with fats and cooking oils, initial encounter; Y93.89 Activity, other specified; F17.210 Nicotine dependence, cigarettes, uncomplicated; F12.90 Cannabis use, unspecified, uncomplicated; Y92.511 Restaurant or cafe as the place of occurrence of the external cause; Y99.0 Civilian activity done for income or pay; Z23 Encounter for immunization
CPT/HCPCS: 16000; 90471; 90715; 99283; 99284

== ENCOUNTER 2025-03-22 12:37 | Outpatient (AMB) | payer MEDICAID, SELFPAY ==
--- NOTE | 2025-03-22 12:39 | MHC.PC.OV ---
Vital Signs 03/22/25 12:43 Height 6 ft Weight 147 lb 6 oz BMI 20.0 BP 120/68 Blood Pressure Location Lt brachial Position Sitting Respiration 12 Pulse 68 Pulse Source Pulse Oximeter Temp 97.3 F Temp Source Oral Pulse Oximetry (%) 98 Oxygen Delivery Method Room Air Intake Visit Reasons: fu care/bleeding/vascetomy Intake Note: Patient needs referral for a vasectomy and patient also c/o rectal bleeding over a year on and off Radius Grinder Required: No Allergies No Known Allergies Allergy (Verified 03/22/25 12:46) Medication List - Last Reconciled 03/22/25 by Gissell Mtz, IAP DISPLAYS ANALYST- divalproex mg PO oxcarbazepine mg PO BID Tobacco use date assessed: 03/22/25 Dental Screening Dental Screen Date: 03/22/25 Did you have a dental visit in the last 12 months?: Yes Did you have a dental problem in the last 6 months where you did not have access to dental care?: No Was dental information given to patient?: Patient has dentist HPI HPI Comments History of Present Illness Details 34-year-old epilepsy, generalized anxiety disorder, 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 History of Present Illness Here today w/ Alfreda - The patient is a 34-year-old male presenting with an annual wellness visit and request for vasectomy approval. - Epilepsy controlled with divalproex and oxcarbazepine[place] [facility] [place] - Generalized anxiety disorder present without ongoing treatment. - Residual hemiparesis following a previous CVA. - Current tobacco and marijuana use. - Bleeding, likely from hemorrhoids, occurring during bowel movements for more than a year. BRBPR. Some mild lower abd pain. Reports normal urination. Denies n/v. Reports stable wt. Good po intake - Referral request for urology regarding vasectomy. Social History - Current tobacco user: smoking approximately less than a pack per day. - Current marijuana user. - with one 8-month-old child. - Reports functional stress related to care. Health Maintenance - Discussion on smoking cessation resources. - Referral to urology for vasectomy consultation. - Referral to general surgery for further evaluation of gastrointestinal bleeding and potential hemorrhoids. - Discussion on insurance coverage for vasectomy and colorectal procedures. Review of Systems - Neurological: Reports well-controlled epilepsy with no recent seizures. - Psychiatric: Reports generalized anxiety without medication or counseling. - Gastrointestinal: Reports profuse bleeding during bowel movements, no abdominal masses felt. - Respiratory: No respiratory symptoms reported. - Cardiovascular: No chest pain reported. - General: Denies recent illness or fevers. Discussion Notes During our session, we discussed the patient's ongoing management for well-controlled epilepsy with current medications including divalproex and oxcarbazepine. The patient?s concerns related to anxiety were noted, and while no treatment is sought presently, options were reviewed. The patient was informed about the vasectomy procedure and the importance of counseling regarding its implications and permanence, including insurance coverage details provided by [facility]. We also discussed the evaluation for potential hemorrhoids or other causes for rectal bleeding, with a referral to general surgery planned for further assessment. Smoking cessation strategies were advised due to the current tobacco habit, emphasizing its implications on overall health. We reviewed routine health maintenance and the need for ongoing follow-ups for his chronic conditions. Assessment and Plan 1. Epilepsy - Continue divalproex and oxcarbazepine Neuro f/u. 2. Generalized Anxiety Disorder - Monitor symptoms. 3. History of CVA with Hemiparesis - Monitor for neurological changes. 4. Tobacco and Marijuana Use - Support smoking cessation. 5. Hemorrhoids - Refer to general surgery. 6. Vasectomy Request - Refer to urology. Patient Instructions - Continue current medications as directed for epilepsy. - Monitor anxiety symptoms and follow up if exacerbation occurs. - Avoid smoking and consider cessation programs. - Expect a call for surgery consultation for bleeding issues. - Contact urology for vasectomy appointment and follow insurance guidance. - RTO 1 year CPE, sooner PRN Consent Patient was informed and verbally consented to the use of an ambient scribe for clinic note documentation during this visit. An additional 30 minutes was spent addressing the problem(s) noted at todays visit. This includes time spent before the visit reviewing the chart, time spent during the visit, and time spent after the visit on documentation reviewing laboratory results, diagnostic imaging, medications, performing a medically necessary evaluation, counseling on diagnoses, care coordination, ordering appropriate tests, ordering appropriate medications, review of tests performed by other providers, reporting test results with the patient, communication with other healthcare providers. [facility] Medical History Paralysis of left upper extremity History of stroke Family History Mother Lymphoma Father Drug overdose Social History Household Members: Other Caregiver staying overnight: No Housing: House Are you a primary summer child caregiver to a significant other at home: No Do you presently have visiting nurse or other home services: No 75 years or older and lives alone: No Alcohol intake: never Patient Tobacco Use Status: Current everyday Tobacco user Cigarette Packs Per Day: 1 e-Cigarette/Vaping Use: Currently Using Substance Use Type: Marijuana service: No Current occupational status: employed Current occupation: Sexual orientation: Unable to collect Gender identity: Unable to collect Cognitive needs: No Hearing needs: No Vision needs: No Questionnaire PHQ-9 Over the last 2 weeks, how often have you been bothered by any of the following problems? 1. Little interest or pleasure in doing things: not at all 2. Feeling down, depressed, or hopeless: not at all 3. Trouble falling or staying asleep, or sleeping too much: not at all 4. Feeling tired or having little energy: not at all 5. Poor appetite or overeating: not at all 6. Feeling bad about yourself - or that you are a failure or have let yourself or your family down: not at all 7. Trouble concentrating on things, such as reading the newspaper or watching television: not at all 8. Moving or speaking so slowly that other people could have noticed. Or the opposite - being so fidgety or restless that you have been moving around a lot more than usual: not at all 9. Thoughts that you would be better off or of hurting yourself in some way: not at all Total score: 0 Depression Screening Interpretation: Negative Depression Screening Done: Yes 18982 - PHQ-9 Billing: Yes Source: Developed by Drs. Shar Goldstein, Neelima Jansen, Vadim aCi and colleagues, with an educational patrick from [employer]. Thrive Questionnaire Date Thrive assessed: 03/22/25 I am a: Patient What is your living situation today?: I have a steady place to live Within the past 12 months, did the food you bought not last and you didn't have the money to get more?: Never true Within the past 12 months, did you worry whether your food would run out before you got money to buy more?: Never true Do you have trouble paying for medicines?: No Do you have trouble getting transportation to medical appointments?: No Do you have trouble paying your heating and electricity bill?: No Do you have trouble taking care of your child, family member or friend?: No Do you have trouble with day-to-day activities such as bathing, preparing meals, shopping, managing finances, etc.?: No Are you currently unemployed and looking for a job?: No Are you interested in more education?: No Please select the resources that you would like help with: None Currently or been in a relationship where the following occur: No concerns reported THRIVE Score: 0 AUDIT C Alcohol Use Questionnaire (AUDIT-C) 1. How often do you have a drink containing alcohol?: Never 3. How often do you have six or more drinks on one occasion?: Never Total Score: 0 Score Reviewed/Action Taken: Yes LEONARD-7 AMB Questionnaire LEONARD-7 Date LEONARD - 7 assessed: 03/22/25 Feeling nervous, anxious, or on edge: 0 = Not at all Not being able to stop or control worryin = Not at all Worrying too much about different things: 0 = Not at all Trouble relaxin = Not at all Being so restless that it is hard to sit still: 0 = Not at all Becoming easily annoyed or irritable: 0 = Not at all Feeling afraid as if something awful might happen: 0 = Not at all Total LEONARD-7 score (0-4 normal; 5-9 mild; 10-14 moderate; 15-21 severe): 0 Source: Developed by Drs. Shar Goldstein, Neelima Jansen, Vadim Cai and colleagues, with an educational patrick from [employer]. LEONARD-7 Assessment Billing LEONARD-7 Assessment Tool: LEONARD-7 Assessment 95067 Physical exam (Primary Care) Vital Signs: Last Vital Signs Temp 97.3 F 03/22/25 12:43 Pulse 68 03/22/25 12:43 Resp 12 03/22/25 12:43 BP 120/68 03/22/25 12:43 Pulse Ox 98 03/22/25 12:43 Oxygen Delivery Method Room Air 03/22/25 12:43 BMI result Body Mass Index 20.0 Tobacco/Smoking Status: Tobacco use Status Tobacco use date assessed 03/22/25 03/22/25 12:42 Patient Tobacco Use Status Current everyday Tobacco 03/22/25 12:42 e-Cigarette/Vaping Use Currently Using 03/22/25 12:42 Are you ready to quit: No Tobacco cessation counseling provided: Yes Items discussed: Nicotine replacement, QuitWorks and Other Relapse Prevention: discussed the importance of a supportive environment, discussed extending NRT, discussed negative mood or depression after quitting, weight gain after smoking is common and discussed dietary, exercise and/or lifestyle changes Number of minutes spent counselin CPT code: 14764 - 4-10 Minutes PHQ-9: PHQ-9 Score PHQ-9: Total score 0 03/22/25 12:45 Depression Screening Interpretation: Negative Thrive Assessment: Date of Thrive Assessment Date Thrive assessed 03/22/25 03/22/25 12:42 Currently or been in a relationship where the following occur: No concerns reported Const Other: General: Well developed, well nourished, in no acute distress. Appears older than stated age. Head: Normocephalic, atraumatic. Eyes: Pupils are equal, round and reactive to light and accommodation. Conjunctivae are clear. Vision grossly normal. Ears: TMs clear AU, EACS WNL Nose: Patent, without discharge. Mouth: There are no ulcers or lesions noted. No inflammation, no post nasal drip, no plaques nor exudates. Neck: Supple, no adenopathy or thyromegaly. Lungs: Clear to auscultation bilaterally. No rales, rhonchi or wheeze noted. Good air flow in all marie. Heart: Regular rate and rhythm. No murmurs, click, rubs or gallops are noted. Abdomen: Bowel sounds present in all quadrants. The abdomen is soft, nontender, with no masses or organomegaly noted. No hernias are noted. : declined exam Musculoskeletal: Joints are nontender, without swelling, redness, or effusions. Pulses: Peripheral pulses are equal and palpable bilaterally. Extremities: No clubbing, cyanosis nor edema is noted. Hemiparesis affecting left upper and lower extremity, muscle atrophy of left arm, ambulates with a limp favoring the left lower extremity Neurologic: Cranial Nerves 2-12 intact. Skin: No rashes, ulcers, or lesions noted. Turgor is good. Skin color is good. Hair and nails are without abnormalities. Psych: Anxious appearing, guarded, looks at before answering any questions and defers to her for any details. Normal eye contact, affect and mood appropriate, and normal interactions. Patient is alert and appropriate to context. Extremities: No clubbing, cyanosis or edema. Coding Level of Care Code Est Pt Level 4 (18352) Est Pt Prev Care 18-39y(59822) Diagnoses Encounter for general adult medical examination with abnormal findings Z00.01 Epilepsy after cerebrovascular accident (CVA) I69.398; G40.909 LEONARD (generalized anxiety disorder) F41.1 Hemiparesis affecting left side as late effect of cerebrovascular accident I69.354 Tobacco dependence with current use F17.200 Bleeding hemorrhoid K64.9 Additional Codes LEONARD-7 Assessment Billing - LEONARD-7 Assessment Tool: LEONARD-7 Assessment 18153 ([id number]) PHQ-9 - 15924 - PHQ-9 Billing: Yes ([id number]) Vital Signs *Quality* - CPT code: 72410 - 4-10 Minutes ([id number]) Assessment & Plan Assessment & Plan (1) Encounter for general adult medical examination with abnormal findings: Onset Date: ~03/22/25 Code(s): Z00.01 - Encounter for general adult medical examination with abnormal findings Category: Medical (2) Epilepsy after cerebrovascular accident (CVA): Comment: Active with [facility]rology every 6 months. Managed carbamazepine reports several partial seizures daily Code(s): I69.398 - Other sequelae of cerebral infarction; G40.909 - Epilepsy, unspecified, not intractable, without status epilepticus Category: Medical (3) LEONARD (generalized anxiety disorder): Comment: Current and active. Not on any medications. Declines medication as well as any referral for counseling or management. He states he will reach out to me if he feels medication or counseling would be beneficial to him Code(s): F41.1 - Generalized anxiety disorder Category: Medical (4) Hemiparesis affecting left side as late effect of cerebrovascular accident: Comment: CVA at age of 2 with residual hemiparesis affecting the left upper and lower extremity Code(s): I69.354 - Hemiplegia and hemiparesis following cerebral infarction affecting left non-dominant side Category: Medical (5) Tobacco dependence with current use: Comment: It?s never too late to quit smoking. Quitting smoking now improves your health and reduces your risk of heart disease, cancer, lung disease, and other smoking-related illnesses. Start Your Quitting Journey Resources for Quitting Telephone 7-238-JKNS-NOW ( ) 824-D?OLIVIA-SIOMARA ( ) (Espa?ol) (??) (???) (Ti?ng Vi?t) Text Messaging Services (Message and data rates may apply) Text QUITNOW to 268412 Texto D?OLIVIA STRINGER al [phone] (Espa?ol) Smartphone Tito BlueKai Code(s): F17.200 - Nicotine dependence, unspecified, uncomplicated Category: Medical (6) Bleeding hemorrhoid: Code(s): K64.9 - Unspecified hemorrhoids Category: Medical Plan . Orders: Referrals Urology Referral Z30.09 - Encounter for other general counseling and advice on contraception General Surgery Referral K64.9 - Unspecified hemorrhoids Patient Instructions: Health screenings for men You should visit your health care provider regularly, even if you feel healthy. The purpose of these visits is to: Screen for medical issues Assess your risk for future medical problems Encourage a healthy lifestyle Update vaccinations and other preventive care services Help you get to know your provider in case of an illness Information Even if you feel fine, you should still see your provider for regular checkups. These visits can help you avoid problems in the future. For example, the only way to find out if you have high blood pressure is to have it checked regularly. High blood sugar and high cholesterol level also may not have any symptoms in the early stages. Simple blood tests can check for these conditions. There are specific times when you should see your provider or receive specific health screenings. The [place] Preventive Services Task Force publishes a list of recommended screenings. Below are screening guidelines for men ages 40 to 64. BLOOD PRESSURE SCREENING Have your blood pressure checked at least once every year. Watch for blood pressure screenings in your area. Ask your provider if you can stop in to have your blood pressure checked. Ask your provider if you need your blood pressure checked more often if: You have diabetes, heart disease, kidney problems, or are overweight or have certain other health conditions You have a first-degree relative with high blood pressure You are Black Your blood pressure top number is from 120 to 129 mm Hg, or the bottom number is from 70 to 79 mm Hg If the top number is 130 mm Hg or greater or the bottom number is 80 mm Hg or greater, this is considered stage 1 hypertension. Schedule an appointment with your provider to learn how you can lower your blood pressure. Effects of age on blood pressure CHOLESTEROL SCREENING Cholesterol screening should begin at age 35 for men with no known risk factors for coronary heart disease. Repeat cholesterol screening should take place: Every 5 years for men with normal cholesterol levels More often if changes occur in lifestyle (including weight gain and diet) More often if you have diabetes, heart disease, kidney problems, or certain other conditions COLORECTAL CANCER SCREENING If you are under age 45, talk to your provider about getting screened. You may need to be screened if you have a strong family history of colon cancer or polyps. Screening may also be considered if you have risk factors such as a history of inflammatory bowel disease or polyps. If you are age 45 to 75, you should be screened for colorectal cancer. There are several screening tests available: A stool-based fecal occult blood (gFOBT) or fecal immunochemical test (FIT) every year A stool sDNA test every 1 to 3 years Flexible sigmoidoscopy every 5 years or every 10 years with stool testing FIT done every year CT colonography (virtual colonoscopy) every 5 years Colonoscopy every 10 years You may need a colonoscopy more often if you have risk factors for colorectal cancer, such as: Ulcerative colitis A personal or family history of colorectal cancer A history of growths in your colon called adenomatous polyps DENTAL EXAM Go to the dentist once or twice every year for an exam and cleaning. Your dentist will evaluate if you have a need for more frequent visits. DIABETES SCREENING All adults who do not have risk factors for diabetes should be screened starting at age 35 and repeated every 3 years. If you have other risk factors for diabetes, such as a first degree relative with diabetes, overweight or obesity, high blood pressure, prediabetes, or a history of heart disease, you may be tested more often. If you are overweight and have other risk factors, such as high blood pressure and are planning to become , screening is recommended. EYE EXAM Have an eye exam every 2 to 4 years ages 40 to 54 and every 1 to 3 years ages 55 to 64. Your provider may recommend more frequent eye exams if you have vision problems or glaucoma risk. Have an eye exam that includes an examination of your retina (back of your eye) at least every year if you have diabetes. IMMUNIZATIONS Commonly needed vaccines include: Flu shot: get one every year COVID-19 vaccine: ask your provider what is best for you Tetanus-diphtheria and acellular pertussis (Tdap) vaccine: have as one of your tetanus-diphtheria vaccines if you did not receive it as an adolescent Tetanus-diphtheria: have a booster (or Tdap) every 10 years Varicella vaccine: receive 2 doses if you never had chickenpox or the varicella vaccine and were born in 1979 or after Hepatitis B vaccine: receive 2, 3, or 4 doses, depending on your exact circumstances, if you did not receive these as a child or adolescent, until age 59 Shingles (herpes zoster) vaccine: at or after age 50 Ask your provider if you should receive other immunizations, especially if you have certain medical conditions, such as diabetes or are at increased risk for some diseases such as pneumonia. INFECTIOUS DISEASE SCREENING Screening for hepatitis C: all adults ages 18 to 79 should get a one-time test for hepatitis C. Screening for human immunodeficiency virus (HIV): all people ages 15 to 65 should get a one-time test for HIV. Depending on your lifestyle and medical history, you may need to be screened for infections such as syphilis, chlamydia, and other infections. LUNG CANCER SCREENING You should have an annual screening for lung cancer with low-dose computed tomography (LDCT) if: You are age 50 to 80 years AND You have a 20 pack-year smoking history AND You currently smoke or have quit within the past 15 years OSTEOPOROSIS SCREENING If you are age 50 to 64 and have risk factors for osteoporosis, you should discuss screening with your provider. Risk factors can include long-term steroid use, low body weight, smoking, heavy alcohol use, having a fracture after age 50, or a family history of hip fracture or osteoporosis. Osteoporosis PHYSICAL EXAM All adults should visit their provider from time to time, even if they are healthy. The purpose of these visits is to: Screen for diseases Assess risk of future medical problems Encourage a healthy lifestyle Update vaccinations and other preventive care services Maintain a relationship with a provider in case of an illness Your height, weight, and body mass index (BMI) should be checked at every exam. During your exam, your provider may ask you about: Depression and anxiety Diet and exercise Alcohol and tobacco use Safety, such as use of seat belts and smoke detectors Your medicines and risk for interactions PROSTATE CANCER SCREENING If you're 55 through 69 years old, before having the test, talk to your provider about the pros and cons of having a PSA test. Ask about: Whether screening decreases your chance of dying from prostate cancer. Whether there is any harm from prostate cancer screening, such as side effects from testing or overtreatment of cancer when discovered. Whether you have a higher risk of prostate cancer than others. If you are age 55 or younger, screening is not generally recommended. You should talk with your provider about if you have a higher risk for prostate cancer. Risk factors include: Having a family history of prostate cancer (especially a brother or father) Being If you choose to be tested, the PSA blood test is repeated over time (yearly or less often), though the best frequency is not known. Prostate examinations are no longer routinely done on men with no symptoms. Prostate cancer SKIN EXAM Your provider may check your skin for signs of skin cancer, especially if you're at high risk. People at high risk include those who have had skin cancer before, have close relatives with skin cancer, or have a weakened immune system. TESTICULAR EXAM The [place] Preventive Services Task Force (USPSTF) now recommends against performing testicular self-exams. Doing testicular self-exams has been shown to have little to no benefit.
[2025-03-22 12:43] VITALS: BP 120/68; PULSE 68; RESP 12; TEMP 36.3; O2SAT 98
== END 2025-03-22 13:06 | disposition home or self-care (01) ==
PROVIDERS: PCP Nurse Practitioner Family; Visit Provider Nurse Practitioner Family
DX: Z00.01 Encounter for general adult medical examination with abnormal findings (principal); G40.909 Epilepsy, unspecified, not intractable, without status epilepticus; I69.354 Hemiplegia and hemiparesis following cerebral infarction affecting left non-dominant side; I69.398 Other sequelae of cerebral infarction; F41.1 Generalized anxiety disorder; F17.200 Nicotine dependence, unspecified, uncomplicated; K64.9 Unspecified hemorrhoids

== ENCOUNTER → 2025-03-22 12:37 | Outpatient (BNVA) | payer MEDICAID, SELFPAY | PROVIDERS: PCP Nurse Practitioner Family; Visit Provider Nurse Practitioner Family | DX: Z00.01 Encounter for general adult medical examination with abnormal findings (principal); I69.398 Other sequelae of cerebral infarction; G40.909 Epilepsy, unspecified, not intractable, without status epilepticus; F41.1 Generalized anxiety disorder; I69.354 Hemiplegia and hemiparesis following cerebral infarction affecting left non-dominant side; K64.9 Unspecified hemorrhoids; F17.210 Nicotine dependence, cigarettes, uncomplicated; Z13.31 Encounter for screening for depression; Z13.30 Encounter for screening examination for mental health and behavioral disorders, unspecified | CPT/HCPCS: 96127; 99212; 99395 ==